=== PATIENT | male | born 1960 | race Caucasian/White ===

== ENCOUNTER 2019-09-25 08:59 | Outpatient (CLI) | payer OTHER, SELFPAY ==
--- NOTE | 2019-09-25 09:12 | EST_ITS ---
Patient Info Name: Abelino Spann Age: 58 years : 1960 Gender: Male Ht: 72 in Wt: 192 lbs BSA: 2.11 m2 Exam Date: 09/25/2019 10:07 AM Exam Location: [facility] Stress Patient Status: Outpatient Admit Date: 09/25/2019 Staff Ordering Physician: Kasia Conde NP Attending Provider: Kasia Conde NP Exercise Technologist: Fanny Burgess RDCS Exercise Physician: Sammy Gomez DO Exam Type: CA stress test treadmill Study Info Indications R07.89 - Other chest pain A treadmill exercise stress test was performed. Summary 1. 1. Negative Michael exercise stress test for ischemic ST changes by ECG criteria. 2. 2. Good functional capacity, achieving 11 METs of workload. 3. 3. Development of chest pain with exercise. 4. 4. Appropriate HR response to exercise. 5. 5. Appropriate HR recovery at 1 minute post exercise. 6. 6. Hypertensive response to exercise. 7. 7. No imaging with stress testing. 8. 8. Patient informed of the above results. Protocol: Michael Stress ECG Details Stage: REST Duration (min): 1 min : 11 sec Speed (mph): 0.0 Grade (%): 0 HR (bpm): 62 SBP (mmHg): 146 DBP (mmHg): 87 METS: --- Stage: REST Duration (min): 11 min : 9 sec Speed (mph): 0.0 Grade (%): 0 HR (bpm): 65 SBP (mmHg): 146 DBP (mmHg): 87 METS: --- Stage: STAGE 1 Duration (min): 1 min : 0 sec Speed (mph): 1.7 Grade (%): 10 HR (bpm): 88 SBP (mmHg): 146 DBP (mmHg): 87 METS: --- Stage: STAGE 1 Duration (min): 2 min : 0 sec Speed (mph): 1.7 Grade (%): 10 HR (bpm): 97 SBP (mmHg): 146 DBP (mmHg): 87 METS: --- Stage: STAGE 1 Duration (min): 3 min : 0 sec Speed (mph): 1.7 Grade (%): 10 HR (bpm): 99 SBP (mmHg): 174 DBP (mmHg): 83 METS: --- Stage: STAGE 2 Duration (min): 1 min : 0 sec Speed (mph): 2.5 Grade (%): 12 HR (bpm): 110 SBP (mmHg): 174 DBP (mmHg): 83 METS: --- Stage: STAGE 2 Duration (min): 2 min : 0 sec Speed (mph): 2.5 Grade (%): 12 HR (bpm): 114 SBP (mmHg): 181 DBP (mmHg): 103 METS: --- Stage: STAGE 2 Duration (min): 3 min : 0 sec Speed (mph): 2.5 Grade (%): 12 HR (bpm): 119 SBP (mmHg): 191 DBP (mmHg): 100 METS: --- Stage: STAGE 3 Duration (min): 1 min : 0 sec Speed (mph): 3.4 Grade (%): 14 HR (bpm): 128 SBP (mmHg): 212 DBP (mmHg): 83 METS: --- Stage: STAGE 3 Duration (min): 2 min : 0 sec Speed (mph): 3.4 Grade (%): 14 HR (bpm): 137 SBP (mmHg): 212 DBP (mmHg): 83 METS: --- Stage: STAGE 3 Duration (min): 3 min : 0 sec Speed (mph): 3.4 Grade (%): 14 HR (bpm): 141 SBP (mmHg): 203 DBP (mmHg): 92 METS: --- Stage: STAGE 4 Duration (min): 0 min : 49 sec Speed (mph): 4.2 Grade (%): 16 HR (bpm): 149 SBP (mmHg): 203 DBP (mmHg): 92 METS: ---
== END 2019-09-25 09:00 | disposition home or self-care (01) ==
PROVIDERS: PCP Internal Medicine; Visit Provider Nurse Practitioner
DX: R07.9 Chest pain, unspecified (principal)
CPT/HCPCS: 93017

== ENCOUNTER 2019-10-02 09:20 | Outpatient (CLI) | payer OTHER, SELFPAY ==
--- NOTE | 2019-10-05 14:24 | WPDPFTINT ---
PFT Interpretation PFT Interpretation: This PFT met all criteria for ATS standards and reproducibility FEV/FVC post bronchodilator 63% of predicted FEV1 97% or 3.32 liters FVC 109% TLC 122% RV125% RV/TLC 36% DLCO 123% when adjusted for alveolar volume but not adjusted for hemoglobin Flow volume loops showed some expiratory coving Impression: Mild airflow obstruction with some reversal post bronchodilator and elevated diffusion capacity. This may correlate with Asthma/Reactive Airway Disease. Clinical correlation is advised.
== END 2019-10-02 09:21 | disposition home or self-care (01) ==
PROVIDERS: PCP Internal Medicine; Visit Provider Nurse Practitioner
DX: R06.02 Shortness of breath (principal); R07.9 Chest pain, unspecified; R94.2 Abnormal results of pulmonary function studies
CPT/HCPCS: 94060; 94726; 94729

== ENCOUNTER 2019-10-20 09:23 | Outpatient (CLI) | payer OTHER, SELFPAY ==
--- NOTE | ~2019-10-20 | NM_ITS ---
EXAMINATION: NM edwige stress w perfusion DATE: 10/20/2019 12:54 INDICATION: Chest pain. TECHNIQUE: Rest images were obtained following intravenous administration of 10.4 mCi Tc99m tetrofosm in (Myoview). The patient was infused intravenously with Lexiscan (regadenoson). Then, 28.5 mCi Tc99m tetrofosmin (Myoview) was administered intravenously, and stress images were obtained. Data was harry nstructed into short axis and horizontal and vertical long axis SPECT images. Gated SPECT images were also obtained. COMPARISON: Chest single view 01/03/2019 FINDINGS: There is a moderate-sized, mild, fixed perfusion defect involving apical septal, mid taylor septal, and mid inferoseptal segments of left ventricle, consistent with infarct. No reversible compo nent to suggest ischemia.. There is no segmental wall motion abnormality. Left ventricular ejection fraction measures 60%. IMPRESSION: 1. Moderate-sized area of mild infarct involving apical septal, mid anteroseptal, and mid inferosepta l segments of left ventricle. 2. Normal left ventricular ejection fraction measuring 60%. Reviewed, dictated and finalized at location A. IMPRESSION: 1. Moderate-sized area of mild infarct involving apical septal, mid anterosepta l, and mid inferoseptal segments of left ventricle. 2. Normal left ventricular ejection fraction measuring 60%.
--- NOTE | 2019-10-20 10:15 | EST_ITS ---
Patient Info Name: Abelino Spann Age: 59 years : 1960 Gender: Male Ht: 72 in Wt: 191 lbs BSA: 2.11 m2 HR: 58 bpm BP: 147 / 95 mmHg Heart Rhythm: Sinus Rhythm Exam Date: 10/20/2019 11:36 AM Exam Location: [facility] Stress Patient Status: Outpatient Admit Date: 10/20/2019 Staff Ordering Physician: Kasia Mayorga NP Attending Provider: Kasia Mayorga NP Exercise Technologist: Cait Antunez RDCS Exercise Physician: Sammy Gomez DO Exam Type: CA stress edwige w NM Study Info Indications R07.89 - Other chest pain A regadenoson stress test was performed. Summary 1. 1. Negative lexiscan stress test for ischemic ST changes by ECG criteria. 2. 2. Baseline hypertension. 3. 3. Nuclear scan to follow and will be reported separately. Please correlate with it. 4. 4. Patient informed of the above results. Protocol: Lexiscan Stress ECG Details Stage: REST Duration (min): 0 min : 59 sec HR (bpm): 58 SBP (mmHg): 147 DBP (mmHg): 95 Stage: REST Duration (min): 10 min : 37 sec HR (bpm): 60 SBP (mmHg): 147 DBP (mmHg): 95 Stage: STAGE 1 Duration (min): 0 min : 59 sec HR (bpm): 75 SBP (mmHg): 149 DBP (mmHg): 98 Stage: RECOVERY Duration (min): 0 min : 28 sec HR (bpm): 85 SBP (mmHg): 149 DBP (mmHg): 98 Stage: RECOVERY Duration (min): 0 min : 41 sec HR (bpm): 94 SBP (mmHg): 149 DBP (mmHg): 98 Stage: RECOVERY Duration (min): 1 min : 0 sec HR (bpm): 89 SBP (mmHg): 152 DBP (mmHg): 95 Stage: RECOVERY Duration (min): 2 min : 0 sec HR (bpm): 85 SBP (mmHg): 152 DBP (mmHg): 95 Stage: RECOVERY Duration (min): 3 min : 0 sec HR (bpm): 80 SBP (mmHg): 153 DBP (mmHg): 94 Stage: RECOVERY Duration (min): 3 min : 19 sec HR (bpm): 77 SBP (mmHg): 153 DBP (mmHg): 94 Rest HR: 60 bpm Peak HR: 94 bpm Rest Sys BP: 147 mmHg Peak Sys BP: 153 mmHg Max Pred HR: 159 bpm % Max Pred HR: 59 % Target HR: 135 bpm Max RPP: 14,382 bpm*mmHg Termination Reason: Completed protocol Cardiac Symptoms: Shortness of breath Total Time: 1 min : 0 sec Rest Gutierrez BP: 95 mmHg Peak Gutierrez BP: 94 mmHg Total Dose: 0.4 mg Resting ECG Sinus rhythm. Stress ECG No ST changes. Arrhythmias PAC's [facility]. Report Signatures
== END 2019-10-20 09:24 | disposition home or self-care (01) ==
LOC: ANHCARD 09:27
PROVIDERS: PCP Internal Medicine; Visit Provider Nurse Practitioner
DX: R07.9 Chest pain, unspecified (principal); I10 Essential (primary) hypertension; R94.39 Abnormal result of other cardiovascular function study
CPT/HCPCS: 78452; 93017; A9502; J2785

== ENCOUNTER 2019-11-12 10:37 | Outpatient (CLI) | payer OTHER, SELFPAY ==
--- NOTE | ~2019-11-12 | US_ITS ---
EXAMINATION: US venous doppler [facility] DATE: 11/12/2019 11:00 INDICATION: Left lower limb edema. TECHNIQUE: Grayscale ultrasound images without and with compression and Doppler ultrasound images of the left lower extremity veins were obtained. COMPARISON: None. FINDINGS: The visualized portions of left common femoral vein, profunda (deep) femoral vein, femoral vein, popl iteal vein, peroneal veins, posterior tibial veins, and greater saphenous vein outflow are patent. IMPRESSION: 1. No deep venous thrombosis. Reviewed, dictated and finalized at location A.
== END 2019-11-12 10:38 | disposition home or self-care (01) ==
PROVIDERS: PCP Internal Medicine; Visit Provider Nurse Practitioner
DX: R60.9 Edema, unspecified (principal); R52 Pain, unspecified
CPT/HCPCS: 93971

== ENCOUNTER 2020-02-06 07:25 | Outpatient (CLI) | payer OTHER, SELFPAY ==
[2020-02-06 08:13] LABS: Alanine Aminotransferase 24 U/L (4-50); Albumin Level 4.1 g/dL (3.5-5.1); Alkaline Phosphatase 71 U/L (38-126); Aspartate Amino Transferase 25 U/L (17-59); Bilirubin,Total 0.7 mg/dL (0.2-1.3); Cholesterol 122 mg/dL (0-200); HDL Direct 34 mg/dL; Triglycerides 86 mg/dL (<150)
[2020-02-06 08:24] LABS: LDL Cholesterol Direct 69 mg/dL
== END 2020-02-06 07:26 | disposition home or self-care (01) ==
LOC: ANHLAB 07:26
PROVIDERS: PCP Internal Medicine; Visit Provider Internal Medicine Cardiovascular Disease
DX: E78.5 Hyperlipidemia, unspecified (principal)
CPT/HCPCS: 36415; 80061; 80076

== ENCOUNTER 2020-04-21 00:51 | Outpatient (CLI) | payer OTHER, SELFPAY ==
[2020-04-21 19:20] LABS: SARS-CoV-2 RNA PCR Negative
== END 2020-04-21 00:52 | disposition home or self-care (01) ==
LOC: ANHCOVIDDT 00:51
PROVIDERS: PCP Internal Medicine; Visit Provider Internal Medicine Gastroenterology
DX: Z01.812 Encounter for preprocedural laboratory examination (principal); Z20.828 Contact with and (suspected) exposure to other viral communicable diseases
CPT/HCPCS: 87635; C9803; U0003

== ENCOUNTER 2020-04-23 02:22 | Day surgery (SDC) | payer OTHER, SELFPAY ==
[2020-04-16 14:59] VITALS: BMI 25.9
[2020-04-23 09:40] VITALS: BP 137/76; PULSE 63; RESP 16; TEMP 36.3; O2SAT 100; BMI 26.2
--- NOTE | 2020-04-23 09:53 | P.HP_ITS ---
History of Present Illness History of Present Illness Consent: Risks, benefits, and alternatives have been discussed and questions answered. Patient agrees to proceed with procedure. Chief complaint: neoplasm screening Narrative: Abelino Spann is a 59 year old W male referred for screening colonoscopy. Last colonoscopy was 10 years ago which was normal. No family history of colon polyps or colon cancer. Patient is asymptomatic. [facility] Past Medical History Medical History Asthma Benign essential tremor Elevated BP without diagnosis of hypertension Heartburn Hip pain Hyperglycemia Hyperlipidemia Lumbar radiculopathy Surgical History Surgical History H/O wrist surgery Left August 2018 History of hip replacement Left January 2019 Family History Family History Father Patient's father is in good health Sibling Heart murmur Brain aneurysm Type 2 diabetes mellitus Mother Brain tumor Social History Social History (Updated 09/15/19 @ 08:56 by Kimbreley Diaz [facility]) Smoking status: Never smoker Smoking end date: 08/13/76 Alcohol intake: never Substance use: never Substance use type: does not use Living arrangements: with family Spiritual care concerns: No Meds Home Medications and Allergies Home Medications Medication Instructions Recorded Confirmed Type albuterol sulfate 90 mcg/actuation 2 puff INHALATION Q4-6H PRN #8.5 gm 09/15/19 04/16/20 Rx aerosol inhaler lisinopril 10 mg tablet 10 mg PO DAILY #90 tablet 11/14/19 04/16/20 Rx aspirin [Aspir-81] 81 mg PO DAILY 04/16/20 04/16/20 History fluticasone propion-salmeterol 1 inhalation INHALATION Q12H PRN 04/16/20 04/16/20 History [Advair Diskus] omeprazole 20 mg PO DAILY 04/16/20 04/16/20 History Allergies Allergy/AdvReac Type Severity Reaction Status Date / Time No Known Allergies Allergy Verified 04/23/20 09:29 Exam Const: Orientation/consciousness: patient oriented x3 Resp: Auscultation: clear to auscultation bilaterally Cardio: Rate: regular rate Rhythm: regular rhythm Heart sounds: no murmurs GI: GI Palp: Yes Soft to palpation, No Tenderness to palpation present (GI), Yes No hepatosplenomegaly present and No Palpable mass present Auscultation: normal bowel sounds Neuro: General: patient oriented x3 and no focal motor deficits Extrem: General: no pedal edema Assessment and Plan Additional Plan Screening colonoscopy in average risk patient
[2020-04-23] MEDS: LACTATED RINGERS 1,000 ML 150 ML IV CONT (09:56)
--- NOTE | 2020-04-23 10:07 | WPDANESEPPF ---
Anes - Initial Pre Proc Eval Procedure: Operation Date: 04/23/20 10:30 Proposed Procedures p Screening Colonoscopy - Cristobal Scott MD Date/Time: 04/23/20 10:07 Surgeon: Cristobal Scott MD Pre Op Diagnosis: neoplasm screening Patient Data Age: 59 Gender: M Height: 1.83 m Weight: 87.9 kg Last Vital Signs Temp 36.3 C L 04/23/20 09:40 Pulse 63 04/23/20 09:40 Resp 16 04/23/20 09:40 BP 137/76 04/23/20 09:40 Pulse Ox 100 04/23/20 09:40 Allergies Allergy/AdvReac Type Severity Reaction Status Date / Time No Known Allergies Allergy Verified 04/23/20 09:29 Home Medications Medication Instructions Recorded Confirmed Type albuterol sulfate 90 mcg/actuation 2 puff INHALATION Q4-6H PRN #8.5 gm 09/15/19 04/16/20 Rx aerosol inhaler lisinopril 10 mg tablet 10 mg PO DAILY #90 tablet 11/14/19 04/16/20 Rx aspirin [Aspir-81] 81 mg PO DAILY 04/16/20 04/16/20 History fluticasone propion-salmeterol 1 inhalation INHALATION Q12H PRN 04/16/20 04/16/20 History [Advair Diskus] omeprazole 20 mg PO DAILY 04/16/20 04/16/20 History Patient hx anesthesia problems: none Family hx anesthesia problems: none PMFSH Past Medical History Medical History Asthma Benign essential tremor Elevated BP without diagnosis of hypertension Heartburn Hip pain Hyperglycemia Hyperlipidemia Lumbar radiculopathy Surgical History Surgical History H/O wrist surgery Left August 2018 History of hip replacement Left January 2019 Family History Family History Father Patient's father is in good health Sibling Heart murmur Brain aneurysm Type 2 diabetes mellitus Mother Brain tumor Social History Social History Smoking status: Never smoker Smoking end date: 08/13/76 Alcohol intake: never Substance use: never Substance use type: does not use Living arrangements: with family Spiritual care concerns: No Anes - Eval Final PreProcedure Day of Procedure 04/23/20 10:07 Patient weight: overweight Heart: regular rate and rhythm Lungs: clear to auscultation and normal air movement Airway: Mallampati scale class II Neurological: alert and oriented Last oral intake: >/= 8 hours ASA classification: II Emergent: no Anesthetic plan: proceed Anesthesia type and monitoring: general GIVS Informed Consent: The patient's anesthetic plan and its attendant risks and benefits were discussed with the patient/family/POA. Questions were solicited and answers provided to the satisfaction of the patient/family/POA.
[2020-04-23 10:52] VITALS: BP 100/88; PULSE 62; RESP 15; O2SAT 100
[2020-04-23 11:02] VITALS: BP 133/93; PULSE 58; RESP 18; O2SAT 100
[2020-04-23 11:12] VITALS: BP 110/78; PULSE 56; RESP 18; O2SAT 100
== END 2020-04-23 11:43 | disposition home or self-care (01) ==
PROVIDERS: PCP Internal Medicine; Visit Provider Internal Medicine Gastroenterology
PROC: 0DJD8ZZ Inspection of Lower Intestinal Tract, Via Natural or Artificial Opening Endoscopic (ICD-10-PCS; CPT 45378; principal; 2020-04-23 10:30)
DX: Z12.11 Encounter for screening for malignant neoplasm of colon (principal); K57.30 Diverticulosis of large intestine without perforation or abscess without bleeding; K64.8 Other hemorrhoids; K64.4 Residual hemorrhoidal skin tags; E78.5 Hyperlipidemia, unspecified; J45.909 Unspecified asthma, uncomplicated; G25.0 Essential tremor; Z79.82 Long term (current) use of aspirin; Z79.899 Other long term (current) drug therapy
CPT/HCPCS: 45378; 87635; C9803; J2704; J7120; U0003

== ENCOUNTER 2020-05-24 12:54 | Outpatient (CLI) | payer OTHER, SELFPAY ==
[2020-05-24 13:59] LABS: Cholesterol 197 mg/dL (0-200); HDL Direct 40 mg/dL; Triglycerides 94 mg/dL (<150)
[2020-05-24 14:10] LABS: LDL Cholesterol Direct 124 mg/dL
== END 2020-05-24 12:55 | disposition home or self-care (01) ==
LOC: ANHLAB 12:56
PROVIDERS: Nurse Practitioner Adult Health; PCP Internal Medicine; Visit Provider Internal Medicine Cardiovascular Disease
DX: E78.5 Hyperlipidemia, unspecified (principal)
CPT/HCPCS: 36415; 80061

== ENCOUNTER 2020-10-18 14:58 | Outpatient (CLI) | payer OTHER, SELFPAY ==
[2020-10-18 16:23] LABS: Cholesterol 149 mg/dL (0-200); HDL Direct 39 mg/dL; Triglycerides 93 mg/dL (<150)
[2020-10-18 16:34] LABS: LDL Cholesterol Direct 92 mg/dL
== END 2020-10-18 14:59 | disposition home or self-care (01) ==
LOC: ANHLAB 15:00
PROVIDERS: PCP Internal Medicine; Visit Provider Nurse Practitioner Adult Health
DX: E78.5 Hyperlipidemia, unspecified (principal)
CPT/HCPCS: 36415; 80061

== ENCOUNTER 2020-12-10 08:58 | Outpatient (CLI) | payer OTHER, SELFPAY ==
[2020-12-10 09:13] LABS: Basophils Absolute Auto 0.1 K/mm3 (0.0-0.1); Basophils Percent Auto 1.3 % (0.2-1.2); Eosinophils Absolute Auto 0.8 K/mm3 (0-0.3); Hematocrit 42.7 % (42.0-52.0); Hemoglobin 14.8 g/dL (14.0-18.0); Immature Granulocyte Absolute 0.02 K/mm3 (0.00-0.031); Immature Granulocyte Percent A 0.3 % (0-0.5); Lymphocytes Absolute Auto 1.57 K/mm3 (0.9-3.2); Lymphocytes Percent Auto 24.7 % (18.3-44.2); Mean Corpuscular HGB Conc 34.7 g/dl (32-36); Mean Corpuscular Volume 92.2 fl (80-100); Mean Platelet Volume 9.6 fl (7.4-10.4); Monocytes Absolute Auto 0.5 K/mm3 (0.1-0.6); Monocytes Percent Auto 8.5 % (2.6-8.5); Neutrophils Absolute Auto 3.4 K/mm3 (1.3-6.7); Neutrophils Percent Auto 53.2 % (45.5-73.1); Platelet Count Result 198 k/mm3 (150-375); Red Blood Count 4.63 M/mm3 (4.6-6.20); Red Cell Distribution Width 12.2 % (11.5-14.5); White Blood Count 6.4 K/mm3 (4.5-10.0)
[2020-12-10 09:24] LABS: Alanine Aminotransferase 17 U/L (4-50); Albumin Level 4.3 g/dL (3.5-5.1); Alkaline Phosphatase 57 U/L (38-126); Anion Gap 6 mmol/L (8-16); Aspartate Amino Transferase 22 U/L (17-59); Bilirubin,Total 0.7 mg/dL (0.2-1.3); Blood Urea Nitrogen 25 mg/dL (9-20); Calcium 9.1 mg/dL (8.4-10.2); Carbon Dioxide 29 mmol/L (22-30); Chloride 107 mmol/L (98-107); Estimated Glomerular Filt Rate > 60; Glucose 104 mg/dL (75-110); Potassium 4.2 mmol/L (3.4-5.0); Sodium 142 mmol/L (137-145)
[2020-12-10 09:55] LABS: Prostate Specific Antigen 0.9 ng/mL (< OR = 4.0)
== END 2020-12-10 08:59 | disposition home or self-care (01) ==
PROVIDERS: PCP Internal Medicine; Visit Provider Clinical Nurse Specialist
DX: E78.5 Hyperlipidemia, unspecified (principal); I10 Essential (primary) hypertension; Z12.5 Encounter for screening for malignant neoplasm of prostate
CPT/HCPCS: 36415; 80053; 84153; 85025; G0103

== ENCOUNTER 2021-04-30 09:14 | Outpatient (CLI) | payer OTHER, SELFPAY ==
--- NOTE | 2021-04-30 | ECG_ITS ---
Rate 65 [place] 155 QRSd 90 QT 393 QTc 409 --[place]-- P 65 QRS 42 T 61 SINUS RHYTHM NORMAL ECG Electronically Signed On 04-30-2021 14:20:04 CDT by Sammy AMARAL
[2021-04-30 10:00] LABS: Basophils Absolute Auto 0.1 K/mm3 (0.0-0.1); Basophils Percent Auto 1.4 % (0.2-1.2); Eosinophils Absolute Auto 0.8 K/mm3 (0-0.3); Eosinophils Percent Auto 10.8 % (0-4.4); Hematocrit 46.4 % (42.0-52.0); Hemoglobin 15.9 g/dL (14.0-18.0); Immature Granulocyte Absolute 0.03 K/mm3 (0.00-0.031); Immature Granulocyte Percent A 0.4 % (0-0.5); Lymphocytes Percent Auto 21.1 % (18.3-44.2); Mean Corpuscular HGB Conc 34.3 g/dl (32-36); Mean Corpuscular Hemoglobin 31.7 pg (26-34); Mean Corpuscular Volume 92.6 fl (80-100); Mean Platelet Volume 9.6 fl (7.4-10.4); Monocytes Absolute Auto 0.7 K/mm3 (0.1-0.6); Monocytes Percent Auto 9.4 % (2.6-8.5); Neutrophils Absolute Auto 4.3 K/mm3 (1.3-6.7); Neutrophils Percent Auto 56.9 % (45.5-73.1); Platelet Count Result 224 k/mm3 (150-375); Red Blood Count 5.01 M/mm3 (4.6-6.20); Red Cell Distribution Width 12.4 % (11.5-14.5); White Blood Count 7.6 K/mm3 (4.5-10.0)
[2021-04-30 10:13] LABS: Partial Thromboplastin Time 25.2 SECONDS (22.3-36.8)
[2021-04-30 10:38] LABS: Alanine Aminotransferase 18 U/L (4-50); Albumin Level 4.6 g/dL (3.5-5.1); Alkaline Phosphatase 58 U/L (38-126); Anion Gap 11 mmol/L (8-16); Aspartate Amino Transferase 21 U/L (17-59); Bilirubin,Total 0.6 mg/dL (0.2-1.3); Blood Urea Nitrogen 19 mg/dL (9-20); Calcium 9.4 mg/dL (8.4-10.2); Carbon Dioxide 27 mmol/L (22-30); Chloride 103 mmol/L (98-107); Estimated Glomerular Filt Rate > 60; Glucose 127 mg/dL (65-110); Potassium 4.1 mmol/L (3.4-5.0); Sodium 141 mmol/L (137-145)
[2021-04-30 10:53] LABS: Creatinine Urine 133.7 mg/dL
[2021-04-30 11:08] LABS: Vitamin D 25 Hydroxy 48.7 ng/mL
[2021-04-30 11:10] LABS: MALB Creatinine Ratio < 4.5 mg/g (0-30); Microalbumin Urine Random < 6.0 mg/L (0-16.7)
[2021-04-30 11:18] LABS: HIV 1/2 Ab P24 Ag Result Negative (Negative)
[2021-04-30 11:23] LABS: Erythrocyte Sedimentation Rate 3 mm/hr (0-20)
[2021-04-30 11:45] LABS: Hepatitis B Surface Antigen Negative (Negative)
[2021-04-30 11:50] LABS: HAV RESULT Negative (Negative); Hepatitis B Core IgM Result Negative (Negative)
[2021-04-30 12:02] LABS: Hepatitis C Virus Antibody Negative (Negative)
== END 2021-04-30 09:15 | disposition home or self-care (01) ==
PROVIDERS: PCP Internal Medicine; Visit Provider Family Medicine Sports Medicine
DX: Z01.818 Encounter for other preprocedural examination (principal)
CPT/HCPCS: 36415; 80053; 80074; 82043; 82306; 85025; 85652; 85730; 86703; 93005; G0432

== ENCOUNTER 2021-05-02 09:11 | Outpatient (CLI) | payer OTHER, SELFPAY ==
[2021-05-02 10:00] LABS: INR 0.9; Prothrombin Time 12.2 Seconds (11.1-14.7)
[2021-05-02 10:44] LABS: Add Urine Microscopic? YES; Appearance Urine Clear (Clear); Bilirubin Urine Negative (Negative); Blood Urine Negative (Negative); Color Urine Yellow (Yellow); Glucose Urine UA Negative (Negative); Ketones Urine Negative (Negative); Leukocyte Esterase Ur Negative LEU/UL (NEGATIVE); Nitrate Urine Negative (Negative); Protein Urine Negative (Negative); RBC Urine 0-2 /hpf (0-2); Specific Grav Ur 1.014 (1.001-1.035); Urobilinogen Urine Negative mg/dL (<2.0); WBC Urine 0-3 /hpf (0-3)
== END 2021-05-02 09:12 | disposition home or self-care (01) ==
PROVIDERS: PCP Internal Medicine; Visit Provider Family Medicine Sports Medicine
DX: Z01.818 Encounter for other preprocedural examination (principal)
CPT/HCPCS: 36415; 81001; 85610

== ENCOUNTER 2021-06-11 09:34 | Outpatient (CLI) | payer OTHER, SELFPAY ==
[2021-06-11 10:09] LABS: Cholesterol 182 mg/dL (0-200); HDL Direct 44 mg/dL; Triglycerides 124 mg/dL (<150)
[2021-06-11 10:21] LABS: LDL Cholesterol Direct 98 mg/dL
[2021-06-11 10:39] LABS: Prostate Specific Antigen 1.1 ng/mL (< OR = 4.0)
== END 2021-06-11 09:35 | disposition home or self-care (01) ==
LOC: ANHLAB 09:35
PROVIDERS: PCP Internal Medicine; Visit Provider Nurse Practitioner
DX: E78.5 Hyperlipidemia, unspecified (principal); R33.9 Retention of urine, unspecified
CPT/HCPCS: 36415; 80061; 84153

== ENCOUNTER 2021-11-16 15:24 | Outpatient (CLI) | payer OTHER, SELFPAY ==
[2021-11-16 16:17] LABS: Basophils Absolute Auto 0.1 K/mm3 (0.0-0.1); Basophils Percent Auto 1.4 % (0.2-1.2); Eosinophils Absolute Auto 1.2 K/mm3 (0-0.3); Eosinophils Percent Auto 15.7 % (0-4.4); Hematocrit 45.7 % (42.0-52.0); Hemoglobin 15.6 g/dL (14.0-18.0); Immature Granulocyte Absolute 0.02 K/mm3 (0.00-0.031); Immature Granulocyte Percent A 0.3 % (0-0.5); Lymphocytes Absolute Auto 2.07 K/mm3 (0.9-3.2); Lymphocytes Percent Auto 27.1 % (18.3-44.2); Mean Corpuscular HGB Conc 34.1 g/dl (32-36); Mean Corpuscular Hemoglobin 31.7 pg (26-34); Mean Corpuscular Volume 92.9 fl (80-100); Mean Platelet Volume 9.8 fl (7.4-10.4); Monocytes Absolute Auto 0.7 K/mm3 (0.1-0.6); Monocytes Percent Auto 8.9 % (2.6-8.5); Neutrophils Absolute Auto 3.6 K/mm3 (1.3-6.7); Neutrophils Percent Auto 46.6 % (45.5-73.1); Platelet Count Result 217 k/mm3 (150-375); Red Blood Count 4.92 M/mm3 (4.6-6.20); Red Cell Distribution Width 12.2 % (11.5-14.5); White Blood Count 7.6 K/mm3 (4.5-10.0)
[2021-11-16 16:28] LABS: Alanine Aminotransferase 23 U/L (4-50); Albumin Level 4.4 g/dL (3.5-5.1); Alkaline Phosphatase 67 U/L (38-126); Anion Gap 6 mmol/L (8-16); Aspartate Amino Transferase 25 U/L (17-59); Blood Urea Nitrogen 21 mg/dL (9-20); Calcium 9.1 mg/dL (8.4-10.2); Carbon Dioxide 28 mmol/L (22-30); Chloride 104 mmol/L (98-107); Cholesterol 179 mg/dL (0-200); Estimated Glomerular Filt Rate > 60; Glucose 84 mg/dL (65-110); HDL Direct 43 mg/dL; Sodium 138 mmol/L (137-145); Triglycerides 92 mg/dL (<150)
[2021-11-16 16:41] LABS: LDL Cholesterol Direct 97 mg/dL
[2021-11-16 16:59] LABS: Prostate Specific Antigen 1.1 ng/mL (< OR = 4.0)
== END 2021-11-16 15:25 | disposition home or self-care (01) ==
LOC: ANHLAB 15:26
PROVIDERS: PCP Internal Medicine; Visit Provider Clinical Nurse Specialist
DX: E78.5 Hyperlipidemia, unspecified (principal); Z12.5 Encounter for screening for malignant neoplasm of prostate; I10 Essential (primary) hypertension
CPT/HCPCS: 36415; 80053; 80061; 84153; 85025; G0103

== ENCOUNTER 2023-03-02 07:20 | Outpatient (CLI) | payer OTHER, SELFPAY ==
[2023-03-02 08:12] LABS: Basophils Absolute Auto 0.1 K/mm3 (0.0-0.1); Basophils Percent Auto 1.5 % (0.2-1.2); Eosinophils Absolute Auto 1.4 K/mm3 (0-0.3); Eosinophils Percent Auto 17.6 % (0-4.4); Hematocrit 47.3 % (42.0-52.0); Hemoglobin 15.8 g/dL (14.0-18.0); Immature Granulocyte Absolute 0.02 K/mm3 (0.00-0.031); Immature Granulocyte Percent A 0.3 % (0-0.5); Lymphocytes Absolute Auto 1.57 K/mm3 (0.9-3.2); Lymphocytes Percent Auto 20.2 % (18.3-44.2); Mean Corpuscular HGB Conc 33.4 g/dl (32-36); Mean Corpuscular Hemoglobin 31.6 pg (26-34); Mean Corpuscular Volume 94.6 fl (80-100); Mean Platelet Volume 9.4 fl (7.4-10.4); Monocytes Absolute Auto 0.8 K/mm3 (0.1-0.6); Monocytes Percent Auto 10.3 % (2.6-8.5); Neutrophils Absolute Auto 3.9 K/mm3 (1.3-6.7); Neutrophils Percent Auto 50.1 % (45.5-73.1); Platelet Count Result 220 k/mm3 (150-375); Red Cell Distribution Width 13.1 % (11.5-14.5); White Blood Count 7.8 K/mm3 (4.5-10.0)
[2023-03-02 08:33] LABS: Alanine Aminotransferase 26 U/L (6-50); Albumin Level 4.3 g/dL (3.5-5.1); Alkaline Phosphatase 56 U/L (38-126); Anion Gap 10 mmol/L (8-16); Aspartate Amino Transferase 27 U/L (17-59); Bilirubin,Total 0.8 mg/dL (0.2-1.3); Blood Urea Nitrogen 22 mg/dL (9-20); Carbon Dioxide 28 mmol/L (22-30); Chloride 103 mmol/L (98-107); Cholesterol 247 mg/dL (0-200); Estimated Glomerular Filt Rate > 60; Glucose 109 mg/dL (65-110); HDL Direct 53 mg/dL; Potassium 4.1 mmol/L (3.4-5.0); Sodium 141 mmol/L (137-145); Triglycerides 97 mg/dL (<150)
[2023-03-02 08:44] LABS: LDL Cholesterol Direct 149 mg/dL
[2023-03-06 04:12] LABS: Apolipoprotein B 123 mg/dL (<90)
== END 2023-03-02 07:21 | disposition home or self-care (01) ==
PROVIDERS: PCP Internal Medicine; Visit Provider Clinical Nurse Specialist
DX: E78.5 Hyperlipidemia, unspecified (principal); I10 Essential (primary) hypertension
CPT/HCPCS: 36415; 80053; 80061; 82172; 84443; 85025

== ENCOUNTER 2023-06-04 07:04 | Emergency (ER) | payer OTHER, SELFPAY ==
[2023-06-04 07:05] VITALS: BP 172/87; PULSE 90; RESP 24; TEMP 36.6; O2SAT 91
--- NOTE | 2023-06-04 07:15 | ED.SOB ---
HPI - SOB/Dyspnea General Chief Complaint: Shortness of Breath/Dyspnea Stated Complaint: im having an asthma attack Time Seen by Provider: 06/04/23 07:09 History of Present Illness HPI Narrative: Pt presents with complaints of SOB this am. Pt did albuterol neb and feels like it made it worse. Pt has history of asthma but normally has no issues so may be related to allergies. Pt on other inhalers that he does not use because he doesn't think he needs them usually. Pt denies fever or cough. Pt says he does not have COPD and does not smoke. Related Data Home Medications Medication Instructions Recorded Confirmed aspirin 81 mg tablet,delayed 81 mg PO DAILY 04/16/20 03/01/23 release (Aspir-) Allergies Allergy/AdvReac Type Severity Reaction Status Date / Time No Known Allergies Allergy Verified 03/01/23 10:54 Review of Systems Review of Systems: All systems reviewed & are unremarkable except as noted in HPI and below PMFSH Past Medical History Medical History (Updated 06/04/23 @ 08:28 by Matheus Allan III, DO) Asthma Benign essential tremor Elevated BP without diagnosis of hypertension Heartburn Hip pain Hyperglycemia Hyperlipidemia Lumbar radiculopathy Wound of foot Surgical History Surgical History H/O wrist surgery Left August 2018 History of back surgery (~04/2021) History of hip replacement Left January 2019 Family History Family History Father Patient's father is in good health Sibling Heart murmur Brain aneurysm Type 2 diabetes mellitus Mother Brain tumor Social History Social History (Updated 03/01/23 @ 10:56 by Liudmila Yang MA) Social History: Caffeine-coffee 2 cups daily Smoking status: Never smoker Smoking end date: 08/13/76 Alcohol intake: never Substance use: never Substance use type: does not use Lack of Transportation: No Lack of Food: Never True Current Housing: I Have Housing Concerned About Future Housing: No Difficulty Paying Gas/Electric Bills: No Difficulty Paying for Meds: No Currently Unemployed: No Education: Associate Degree Difficulty w/ Childcare or Family Care: No Living arrangements: with family Spiritual care concerns: No Exam Const: General: healthy appearing Nutritional Appearance: well nourished Orientation/consciousness: patient oriented x3 Limitations: no limitations HENMT: Head: normal to inspection Face/Nose/Sinus: Normal external nose present Chest: Chest palpation & inspection: normal inspection of the chest Resp: Effort & Inspection: labored and tachypneic Auscultation: wheezes Cardio: Rate: tachycardic Rhythm: regular rhythm GI: GI Palp: Yes Soft to palpation Auscultation: normal bowel sounds Skin: General skin exam: normal color Neuro: General: patient oriented x3, moves all extremities and no focal motor deficits Speech: normal speech Extrem: General: normal to inspection and no clubbing, cyanosis or edema Psych: Mental Status: mental status grossly normal Affect: Anxious affect present Attitude: cooperative Course Vital Signs Vital signs: Vital Signs Temperature 97.9 F 06/04/23 07:05 Pulse Rate 90 06/04/23 07:05 Respiratory Rate 24 H 06/04/23 07:05 Blood Pressure 172/87 H 06/04/23 07:05 Pulse Oximetry 91 06/04/23 07:05 Oxygen Delivery Room Air 06/04/23 07:05 Temperature 97.9 F 06/04/23 07:05 Pulse Rate 84 06/04/23 08:02 Respiratory Rate 18 06/04/23 08:02 Blood Pressure 137/87 06/04/23 08:02 Pulse Oximetry 99 06/04/23 08:02 Oxygen Delivery Room Air 06/04/23 07:05 MDM - SOB/Dyspnea MDM Narrative Medical decision making narrative: Pt presents with SOB and has history of asthma. Pt did albuterol neb and felt worse. Pt does not routinely use his other inhalers. Pt not febrile and does not demonstrate other sig
--- NOTE | 2023-06-04 07:25 | ECG_ITS ---
Measurements Intervals [place] Rate: 79 P: -22 FL: 161 QRS: 7 QRSD: 79 T: -11 QT: 352 QTc: 405 Interpretive Statements SINUS RHYTHM NORMAL ELECTROCARDIOGRAM COMPARED TO ECG 04/30/2021 10:07:28 NO SIGNIFICANT CHANGES Electronically Signed On 06-04-2023 14:48:52 CDT by Andrea Richardson M.D.
[2023-06-04 07:28] VITALS: PULSE 81; RESP 15
[2023-06-04] MEDS: IPRATROPIUM BR 0.02% INH SOLN 0.5 MG/2.5 ML VIAL INHALATION (07:28)
[2023-06-04] MEDS: ALBUTEROL SULFATE NEB 2.5 MG/3 ML INH INHALATION (07:28)
[2023-06-04 07:41] VITALS: PULSE 80; RESP 15
[2023-06-04 08:02] VITALS: BP 137/87; PULSE 84; RESP 18; O2SAT 99
== END 2023-06-04 08:34 | disposition home or self-care (01) ==
PROVIDERS: Emergency Provider Emergency Medicine; PCP Internal Medicine
DX: J45.909 Unspecified asthma, uncomplicated (principal); E78.5 Hyperlipidemia, unspecified
CPT/HCPCS: 93005; 94640; 99284

== ENCOUNTER 2023-08-09 15:33 | Outpatient (CLI) | payer OTHER, SELFPAY ==
[2023-08-09 17:02] LABS: Prostate Specific Antigen 1.2 ng/mL (< OR = 4.0)
[2023-08-16 10:36] LABS: Testosterone Free 52.6 pg/mL (35.0-155.0); Testosterone Total 424 ng/dL (250-1100)
== END 2023-08-09 15:34 | disposition home or self-care (01) ==
PROVIDERS: PCP Internal Medicine; Referring Provider Internal Medicine Cardiovascular Disease; Visit Provider Internal Medicine
DX: R53.83 Other fatigue (principal); R68.82 Decreased libido; E78.5 Hyperlipidemia, unspecified
CPT/HCPCS: 36415; 84153; 84402; 84403; 84443; G0103

== ENCOUNTER 2023-08-17 10:01 | Outpatient (CLI) | payer OTHER, SELFPAY ==
[2023-08-17 19:45] LABS: Iron 91 ug/dL (49-181)
[2023-08-17 19:51] LABS: Alanine Aminotransferase 22 U/L (6-50); Albumin Level 4.7 g/dL (3.5-5.1); Alkaline Phosphatase 64 U/L (38-126); Anion Gap 8 mmol/L (8-16); Aspartate Amino Transferase 38 U/L (17-59); Bilirubin,Total 0.7 mg/dL (0.2-1.3); Blood Urea Nitrogen 19 mg/dL (9-20); Calcium 9.3 mg/dL (8.4-10.2); Carbon Dioxide 30 mmol/L (22-30); Chloride 103 mmol/L (98-107); Estimated Glomerular Filt Rate > 60; Glucose 99 mg/dL (65-110); Magnesium 2.5 mg/dL (1.6-2.3); Potassium 4.3 mmol/L (3.4-5.0); Sodium 141 mmol/L (137-145)
[2023-08-17 20:11] LABS: Percent Iron Saturation 30 % (20-50)
== END 2023-08-17 10:02 | disposition home or self-care (01) ==
PROVIDERS: PCP Internal Medicine; Visit Provider Clinical Nurse Specialist
DX: R25.2 Cramp and spasm (principal); R53.83 Other fatigue
CPT/HCPCS: 36415; 80053; 82728; 83540; 83550; 83735

== ENCOUNTER 2023-10-08 09:11 | Outpatient (CLI) | payer OTHER, MEDICARE, SELFPAY ==
[2023-10-08 17:22] LABS: Creatine Kinase 217 U/L (55-170)
== END 2023-10-08 09:12 | disposition home or self-care (01) ==
LOC: ANHGOSHLAB 09:14
PROVIDERS: PCP Internal Medicine; Visit Provider Internal Medicine
DX: R25.2 Cramp and spasm (principal)
CPT/HCPCS: 36415; 82550

== ENCOUNTER 2023-10-16 07:09 | Outpatient (CLI) | payer MEDICARE, SELFPAY ==
[2023-10-16 08:38] LABS: Erythrocyte Sedimentation Rate 4 mm/hr (0-20)
[2023-10-16 10:45] LABS: CRP < 0.5 mg/dL (<1.0); Creatine Kinase 93 U/L (55-170); Lactate Dehydrogenase 168 U/L (120-246)
[2023-10-22 00:46] LABS: Aldolase 5.4 U/L (<=8.1)
[2023-10-23 14:56] LABS: CK-BB None Detected (None Detected); CK-MB 0 % (<5); CK-MM 100 % (95-100)
== END 2023-10-16 07:10 | disposition home or self-care (01) ==
LOC: ANHLAB 07:15
PROVIDERS: PCP Internal Medicine; Visit Provider Internal Medicine
DX: R25.2 Cramp and spasm (principal); M79.604 Pain in right leg; M79.605 Pain in left leg
CPT/HCPCS: 36415; 82085; 82550; 82552; 83615; 85652; 86140

== ENCOUNTER 2023-10-23 08:09 | Outpatient (CLI) | payer MEDICARE, SELFPAY ==
--- NOTE | ~2023-10-23 | US_ITS ---
EXAMINATION: US arterial ankle brachial ind DATE: 10/23/2023 09:08 INDICATION: Lower limb cramping and spasms. TECHNIQUE: Segmental pressures and plethysmographic and Doppler waveforms of the brachial and lower e xtremity arteries were obtained. COMPARISON: None. FINDINGS: Right and left brachial artery pressures of 164 mm Hg and 161 mm Hg, respectively, are concordant (no rmal difference <= 30 mmHg). The right ankle-brachial index (MANAV) is 1.16 (normal >= 0.9-1.0). The right great toe-brachial index (TBI) is 0.65 (normal >= 0.65). Arterial Doppler waveforms are biphasic with brisk systolic upstrokes at both right posterior tibial and dorsalis pedis arteries. The left MANAV is 1.17. The left TBI is 0.90. Arterial Doppler waveforms are biphasic with brisk systol ic upstrokes at both left posterior tibial and dorsalis pedis arteries. IMPRESSION: 1. No significant arterial occlusive disease with normal bilateral ABIs and TBIs. Reviewed, dictated and finalized at location L. IMPRESSION: 1. No significant arterial occlusive disease with normal bilateral ABIs and TBI s.
== END 2023-10-23 08:10 | disposition home or self-care (01) ==
LOC: ANHIMG 08:17
PROVIDERS: PCP Internal Medicine; Visit Provider Internal Medicine
DX: R25.2 Cramp and spasm (principal); M79.604 Pain in right leg; M79.605 Pain in left leg; I73.9 Peripheral vascular disease, unspecified
CPT/HCPCS: 93922

== ENCOUNTER 2023-11-07 08:48 | Outpatient (CLI) | payer MEDICARE, SELFPAY ==
--- NOTE | 2023-11-07 11:00 | NEURO_ITS ---
Impression: # Non-Diabetic complains of bilateral leg cramps. History of low back surgery. # Normal motor/sensory Nerve Conduction Study. # Normal needle/EMG exam without neurogenic changes. # Clinical correlation recommended. Nerve Conduction Studies Anti Sensory Summary Table Stim Site NR Peak (ms) P-T Amp (?V) Site1 Site2 Delta-P (ms) Dist (cm) Jorge (m/s) Left Saphenous Anti Sensory (Ant Med Mall) 14cm 3.9 36.2 14cm Ant Med Mall 3.9 0.0 Right Saphenous Anti Sensory (Ant Med Mall) NO RESPONSE 14cm NR 14cm Ant Med Mall 0.0 Left Sup Fibular Anti Sensory (Ant Lat Mall) 14 cm 3.9 6.2 14 cm Ant Lat Mall 3.9 16.0 41 Right Sup Fibular Anti Sensory (Ant Lat Mall) 14 cm 3.9 11.9 14 cm Ant Lat Mall 3.9 16.0 41 Left Sural Anti Sensory (Lat Mall) Calf 3.9 11.6 Calf Lat Mall 3.9 16.0 41 Right Sural Anti Sensory (Lat Mall) Calf 4.0 5.4 Calf Lat Mall 4.0 16.0 40 Motor Summary Table Stim Site NR Onset (ms) O-P Amp (mV) Site1 Site2 Delta-0 (ms) Dist (cm) Jorge (m/s) Left Peroneal Motor (Vastus Med) Ankle 4.9 0.9 Popit Ankle 9.6 46.0 48 Popit 14.5 1.6 Right Peroneal Motor (Vastus Med) Ankle 4.8 1.3 Popit Ankle 9.4 44.0 47 Popit 14.2 1.1 Left Tibial Motor (Abd Jacinto Brev) Ankle 4.6 1.7 Knee Ankle 10.8 46.0 43 Knee 15.4 1.2 Right Tibial Motor (Abd Jacinto Brev) Ankle 4.6 2.6 Knee Ankle 10.7 46.0 43 Knee 15.3 1.9 F Wave Studies NR F-Lat (ms) L-R F-Lat (ms) Left Peroneal (Mrkrs) (EDB) 57.14 0.00 Right Peroneal (Mrkrs) (EDB) 57.14 0.00 Left Tibial (Mrkrs) (Abd Hallucis) 57.25 0.66 Right Tibial (Mrkrs) (Abd Hallucis) 57.91 0.66 EMG Side Muscle Nerve Root Ins Act Fibs Amp Dur Recrt Comment Right AntTibialis Dp Br Fibular L4-5 Nml Nml Nml Nml Nml Right Gastroc Tibial S1-2 Nml Nml Nml Nml Nml Right Fibularis Long Sup Br Fibular L5-S1 Nml Nml Nml Nml Nml Right Flex Dig Long Tibial L5-S2 Nml Nml Nml Nml Nml Right Ext Dig Brev Dp Br Fibular L5, S1 Nml Nml Nml Nml Nml Left AntTibialis Dp Br Fibular L4-5 Nml Nml Nml Nml Nml Left Gastroc Tibial S1-2 Nml Nml Nml Nml Nml Left Fibularis Long Sup Br Fibular L5-S1 Nml Nml Nml Nml Nml Left Flex Dig Long Tibial L5-S2 Nml Nml Nml Nml Nml Left Ext Dig Brev Dp Br Fibular L5, S1 Nml Nml Nml Nml Nml MTDD
== END 2023-11-07 08:49 | disposition home or self-care (01) ==
LOC: ANHNEURO 08:49
PROVIDERS: PCP Internal Medicine; Visit Provider Internal Medicine
DX: R25.2 Cramp and spasm (principal); M79.604 Pain in right leg; M79.605 Pain in left leg
CPT/HCPCS: 95886; 95911